=== PATIENT | male | born 1955 | race Caucasian/White ===

== ENCOUNTER 2019-07-22 11:50 | Emergency (ER) | payer BC ==
[~2019-07-22] VITALS: Ht 182.9 cm; Wt 95.3 kg
[2019-07-22] MEDS ORDERED: METFORMIN HCL1000 M1 PO (12:50)
[2019-07-22] MEDS ORDERED: LISINOPRIL10 MG PO (12:51)
[2019-07-22] MEDS ORDERED: ATORVASTATIN CA10 MG PO (12:51)
[2019-07-22] MEDS ORDERED: ASPIR 8181 MG PO (12:51)
[2019-07-22] MEDS ORDERED: GLIPIZIDE ER10 MG PO (12:51)
[2019-07-22] MEDS ORDERED: GLYXAMBI 25 MG1 EACH PO (12:51)
[2019-07-22] MEDS ORDERED: TAMS0.4C PO (12:52)
[2019-07-22] MEDS ORDERED: B-COMPLEX PLUS1 EACH PO (12:52)
[2019-07-22] MEDS ORDERED: CENTRUM SILVER1 EAC4 PO (12:52)
== END 2019-07-22 15:04 | disposition home or self-care (01) ==
LOC: ER 11:50
DX: H11.31 Conjunctival hemorrhage, right eye (principal)

== ENCOUNTER → 2019-07-22 17:08 | Outpatient (CLI) | payer BC ==
[~2019-07-22 17:08] MED LIST: ASPIR 8181 MG PO; ATORVASTATIN CA10 MG PO; B-COMPLEX PLUS1 EACH PO; CENTRUM SILVER1 EAC4 PO; GLIPIZIDE ER10 MG PO; GLYXAMBI 25 MG1 EACH PO; LISINOPRIL10 MG PO; METFORMIN HCL1000 M1 PO; TAMS0.4C PO
== END | disposition home or self-care (01) ==
LOC: LAB 17:08
DX: E03.8 Other specified hypothyroidism (principal); I10 Essential (primary) hypertension